=== PATIENT | female | born 1930 | race American Indian/Alaskan Native ===

== ENCOUNTER 2016-09-29 13:04 | Observation (INO) | payer MEDICARE, OTHER ==
--- NOTE | 2016-09-29 13:22 | EDM.PDOC ---
ED HPI SEIZURE COMPLAINT - General Chief Complaint: Syncope Stated Complaint: AMBULANCE Time Seen by Provider: 09/29/16 13:07 Source of Information: Reports: EMS, Family (son) History Limitations: Reports: No limitations - History of Present Illness INITIAL COMMENTS - FREE TEXT/NARRATIVE: She and her son were at home after having had lunch. She was sitting on a bench at the table and then became unresponsive to the point that her son had to hold her up and keep her from falling. 911 called and arrived. She was unresponsive, eyes were closed and she was breathing. Vital signs were BP 135/ 74 Resp were 1618. teletypesetter monitor showed NSR at 56 and room air sats were 96 percent. She became alert soon after the ambulance crew jostled her a little when transporting her. She has had not headache, chest pain, palpitations, weakness and had no prodrome. She feels fine now and back to normal. She is able to give a good history. Timing/Duration: Reports: minutes: Event Occurred (Where): home Event (Witnessed/Unwitnessed): witnessed (son) Location: Reports: other (generalized) Quality: Reports: unconscious Severity: severe Context: Denies: missed med dose(s), activity/exercise Pre Event Symptom(s): Reports: no other symptoms Event Symptoms: Reports: syncope. Denies: incontinence, tongue biting, confusion, headaches, nausea/vomiting Post Event Symptoms: Denies: confused, combative, headache, altered speech, postictal duration: Associated Injuries: Reports: other (No injury) Treatments SUPERVISOR RESIDENTIAL: Reports: Other (see below) (None) - Related Data Allergies/ADRs: Allergies Allergy/AdvReac Type Severity Reaction Status Date / Time No Known Allergies Allergy Verified 10/13/13 20:59 Home Meds: Home Meds Isosorbide Mononitrate [Isosorbide Mononitrate ER] 30 mg PO DAILY 10/13/13 [ History] Metoprolol Tartrate 50 mg PO BID 10/13/13 [History] Rosuvastatin Calcium [Crestor] 20 mg PO DAILY 10/13/13 [History] Social & Family History - Tobacco Use Smoking Status *Q: Never Smoker Second Hand Smoke Exposure: No - Alcohol Use Days Per Week of Alcohol Use: 7 Number of Drinks Per Day: 1 Total Drinks Per Week: 7 - Recreational Drug Use Recreational Drug Use: No ED ROS GENERAL - Review of Systems Review Of Systems: See Below Constitutional: Reports: no symptoms HEENT: Reports: No symptoms Respiratory: Reports: No Symptoms Cardiovascular: Reports: No symptoms GI/Abdominal: Reports: No symptoms : Reports: no symptoms Musculoskeletal: Reports: no symptoms Skin: Reports: no symptoms Neurological: Reports: No Symptoms Psychiatric: Reports: No symptoms Hematologic/Lymphatic: Reports: no symptoms - Physical Exam Exam: See Below Exam Limited By: No limitations General Appearance: alert, WD/WN, no apparent distress Eye Exam: bilateral eye: EOMI, normal inspection Ears: normal external exam, normal canal, hearing grossly normal, normal TMs Nose: normal inspection, normal mucosa, no blood Throat/Mouth: Normal inspection, Normal lips, Normal teeth, Normal gums, Normal oropharynx, Normal voice, No airway compromise Head Exam: atraumatic, normocephalic Neck: normal inspection, supple, non-tender, full range of motion Respiratory/Chest: no respiratory distress, lungs clear, normal breath sounds, no accessory muscle use, chest non-tender Cardiovascular: normal peripheral pulses, regular rate, rhythm, no edema, no gallop, no JVD, no murmur, no rub GI/Abdominal: normal bowel sounds, non tender Neuro Exam (Abbreviated): alert, oriented, CN II-XII intact, normal cognition, normal reflexes, no motor/sensory deficits DTR: 2+: bicep (R), bicep (L), tricep (R), tricep (L), patella (R), patella (L) , achilles (R), achilles (L) Back Exam: normal inspection Extremities: normal inspection, normal range of motion, non-tender, no pedal edema, normal capillary refill Skin Exam: Warm, Dry, Intact, Normal color, No rash Course - Vital Signs Last Recorded V/S: Last Vital Signs Temp 98.8 F 09/29/16 17:53 Pulse 64 09/29/16 17:53 Resp 16 09/29/16 17:53 BP 115/64 09/29/16 17:53 Pulse Ox 98 09/29/16 17:53 - Orders/Labs/Meds Orders: Medication Orders Acetaminophen (Tylenol) 650 mg PO Q4H PRN PRN Reason: Pain (mild 1-3 )/fever Aspirin (Aspirin) 81 mg PO BEDTIME [facility] Docusate Sodium (Colace) 100 mg PO DAILY PRN PRN Reason: Constipation Heparin Sodium (Porcine) (Heparin Sodium) 5,000 units SUBCUT Q8H [facility] Sodium Chloride (Normal Saline) 1,000 mls @ 50 mls/hr IV ASDIRECTED [facility] Last Admin: 09/29/16 18:32 Dose: 50 mls/hr Isosorbide Mononitrate (Imdur) 30 mg PO BID [facility] Metoprolol Tartrate (Lopressor) 25 mg PO BID [facility] Pantoprazole Sodium (Protonix) 40 mg PO ACBREAKFAST [facility] Rosuvastatin Calcium (Crestor) 20 mg PO DAILY [facility] Labs: Laboratory Tests 09/29/16 09/29/16 09/29/16 Range/Units 13:55 13:55 13:55 WBC 7.6 (5.0-10.0) 10^3/uL RBC 4.00 L (4.2-5.4) 10^6/uL Hgb 12.7 (12.0-16.0) g/dL Hct 37.4 (37.0-47.0) % MCV 93.5 (80-100) fL MCH 31.8 (27.0-34.0) pg MCHC 34.0 (33.0-35.0) g/dL Plt Count 238 (150-450) 10^3/uL Neut % (Auto) 66.7 (42.2-75.2) % Lymph % (Auto) 18.8 L (20.5-50.1) % Kane % (Auto) 11.5 H (2-8) % Eos % (Auto) 2.1 (1.0-3.0) % Baso % (Auto) 0.9 (0.0-1.0) % D-Dimer, Quantitative 663 H (0-400) ng/mL Sodium 135 (135-145) mmol/L Potassium 3.9 (3.6-5.0) mmol/L Chloride 103 (101-111) mmol/L Carbon Dioxide 25.0 (21.0-31.0) mmol/L Anion Gap 10.9 BUN 19 H (7-18) mg/dL Creatinine 0.8 (0.6-1.3) mg/dL Est Cr Clr Drug Dosing 45.42 mL/min Estimated GFR (MDRD) > 60 BUN/Creatinine Ratio 23.75 Glucose 138 H (74-105) mg/dL Calcium 8.6 (8.4-10.2) mg/dl Total Bilirubin 0.5 (0.2-1.0) mg/dL AST 17 (10-42) IU/L ALT 9 L (10-60) IU/L Alkaline Phosphatase 42 (42-121) IU/L Troponin I < 0.02 (0.00-0.02) ng/ml Total Protein 6.4 L (6.7-8.2) g/dl Albumin 3.3 (3.2-5.5) g/dl Globulin 3.1 Albumin/Globulin Ratio 1.06 Meds: Medications Generic Name Dose Route Start Last Admin Trade Name Freq PRN Reason Stop Dose Admin Acetaminophen 650 mg 09/29/16 18:12 Tylenol PO Q4H PRN Pain (mild 1-3 )/fever Aspirin 81 mg 09/29/16 21:00 Aspirin PO BEDTIME [facility] Docusate Sodium 100 mg 09/29/16 18:12 Colace PO DAILY PRN Constipation Heparin Sodium (Porcine) 5,000 units 09/29/16 22:00 Heparin Sodium SUBCUT Q8H [facility] Sodium Chloride 1,000 mls @ 50 mls/hr 09/29/16 18:30 09/29/16 18:32 Normal Saline IV 50 mls/hr ASDIRECTED [facility] Administration Isosorbide Mononitrate 30 mg 09/29/16 21:00 Imdur PO BID [facility] Metoprolol Tartrate 25 mg 09/29/16 21:00 Lopressor PO BID [facility] Pantoprazole Sodium 40 mg 09/30/16 06:00 Protonix PO ACBREAKFAST [facility] Rosuvastatin Calcium 20 mg 09/30/16 09:00 Crestor PO DAILY [facility] Discontinued Medications Generic Name Dose Route Start Last Admin Trade Name Freq PRN Reason Stop Dose Admin Iopamidol 100 ml 09/29/16 15:04 09/29/16 15:47 Isovue-370 (76%) IVPUSH 09/29/16 15:05 100 ml ONETIME ONE Administration - Re-Assessments/Exams Free Text/Narrative Re-Assessment/Exam: 09/29/16 17:02 Cheli has remained alert and has had normal mentation and able to carry on a normal conversation with her son. Departure - Departure Time of Disposition: 13:12 Disposition: Admitted As Inpatient 66 Condition: good Clinical Impression: Syncope and collapse
[2016-09-29 14:23] LABS: CHLORIDE,CL 103 mmol/L (101-111); SODIUM,NA 135 mmol/L (135-145)
[2016-09-29] MEDS ORDERED: Iopamidol 755 Mg/ML 100 ML Bottle IVPUSH ONE (15:04)
--- NOTE | 2016-09-29 17:29 | PCM.HP ---
H&P History of Present Illness - General Date of Service: 09/29/16 Admit Problem/Dx: pt was brought with "passing out" Syncopal Episode. She and her son were at home after having lunch,was sitting on a bench at the table and then became unresponsive to the point that her son had to hold her up and keep her from falling. 911 was called and was unresponsive, eyes were closed and she was breathing. Vital signs were BP 135/74 Resp were 16/18. molding line operator showed NSR at 56 and room air sats were 96 percent. She became alert soon after the ambulance crew jostled her a little when transporting her. She has had not headache, chest pain, palpitations, weakness and had no prodrome. She feels fine now and back to normal. She is able to give a good history. Source of Information: Patient, Old records History Limitations: Reports: No limitations - History of Present Illness Initial Comments - Free Text/Narative: The patient is an 86-year-old female with past medical history of coronary artery disease, hypertension, hyperlipidemia who was broght to ED by Ambulace after she was found to be unresponsive ( acute syncopal episode) after the meal . The last admitted to [facility] with chest pain in september 2013 and at that time she was seen by Cardiology and had Angiorram from [facility] and had no significant coronary artery disease and the lesion in the posterolateral branch is the only one which might be theculprit, but given the fact that the artery is relatively small in size, Dr. Norton recommended medical management and no significant stenosis in LAD. The pt gets folloowed by Dr. Brown at [facility]. Pt had elevated D-Dimer ( 663 ) and CT chest with contrst for PE and it was Negative for PE. She also had Head CT - and the Impression was: Age-related Atrophy and chronic white matter changes. Troponin was <0.02. She is now admitted for observation to rule out ACS. Onset of Symptoms: Reports: today, sudden Duration of Symptoms: Reports: Resolved prior to arrival Associated Symptoms: Reports: syncope - Related Data Allergies/Adverse Reactions: Allergies Allergy/AdvReac Type Severity Reaction Status Date / Time No Known Allergies Allergy Verified 10/13/13 20:59 Home Medications: Home Meds Isosorbide Mononitrate [Isosorbide Mononitrate ER] 30 mg PO DAILY 10/13/13 [ History] Metoprolol Tartrate 50 mg PO BID 10/13/13 [History] Rosuvastatin Calcium [Crestor] 20 mg PO DAILY 10/13/13 [History] Past Medical History HEENT History: Reports: Impaired vision Cardiovascular History: Reports: High cholesterol, Hypertension Social & Family History - Tobacco Use Smoking Status *Q: Never Smoker Second Hand Smoke Exposure: No - Caffeine Use Caffeine Use: Reports: Coffee, Soda - Alcohol Use Days Per Week of Alcohol Use: 7 Number of Drinks Per Day: 1 Total Drinks Per Week: 7 - Recreational Drug Use Recreational Drug Use: No H&P Review of Systems - Review of Systems: Review Of Systems: See Below General: Denies: fever, chills, weakness, fatigue, diaphoresis HEENT: Denies: hearing changes, sinus congestion, sore throat, vertigo, visual changes Pulmonary: Denies: Shortness of Breath, Wheezing, Cough, Sputum Cardiovascular: Reports: syncope. Denies: chest pain, palpitations, dyspnea on exertion, lightheadedness Gastrointestinal: Denies: Abdominal pain, Diarrhea, Nausea, Vomiting Genitourinary: Denies: dysuria, frequency, burning, urgency Musculoskeletal: Denies: neck pain, shoulder pain, foot pain Skin: Denies: bruising, pruritis, rash, erythema Psychiatric: Denies: confusion, anxiety Neurological: Denies: Confusion, Tingling, Tremors Hematologic/Lymphatic: Reports: no symptoms Immunologic: Reports: no symptoms Exam - Exam Exam: See Below - Vital Signs Vital Signs: Last Vital Signs Temp 36.1 C 09/29/16 17:15 Pulse 59 L 09/29/16 17:15 Resp 16 09/29/16 17:15 BP 106/60 09/29/16 17:15 Pulse Ox 98 09/29/16 17:15 Weight: 73.573 kg - Exam Quality Assessment: DVT prophylaxis. No: supplemental oxygen, urinary catheter General: alert, oriented, cooperative HEENT: Hearing intact, Mucosa moist & pink, Pupils equal Neck: supple. No: lymphadenopathy, thyromegaly Lungs: Clear to auscultation, Normal respiratory effort. No: Rhonchi, Wheezing Cardiovascular: regular rate, regular rhythm, systolic murmur Abdomen: normal bowel sounds, soft. No: organomegaly, guarding, rigidity, rebound (Female) Exam: Deferred Rectal (Female) Exam: Deferred Back Exam: normal inspection Extremities: normal inspection. No: cyanosis, calf tenderness, edema Skin: warm, dry, intact Neurological: cranial nerves intact Neuro Extensive - Mental Status: alert, oriented x3, normal mood/affect, normal cognition Neuro Extensive - Motor, Sensory, Reflexes: CN II-XII intact, normal gait, normal reflexes Psychiatric: alert, normal affect, normal mood Physical Exam Comments:: I reviewed the EKG: Normal sinus rhythm with Ventricular rate of 60 Bpm and old Anteriseptal infract, No significant ST-T changes - Patient Data Result Diagrams: 09/29/16 13:55 09/29/16 13:55 *Q Meaningful Use (ADM) - VTE *Q VTE Criteria *Q: - Stroke *Q Stroke Criteria *Q: - AMI *Q AMI Criteria *Q: - Problem List (1) Syncope and collapse SNOMED Code(s): 001265199 ICD Code: R55 - SYNCOPE AND COLLAPSE Status: Acute Current Visit: Yes (2) Acute coronary syndrome SNOMED Code(s): 127816240 ICD Code: I24.9 - ACUTE ISCHEMIC HEART DISEASE, UNSPECIFIED Status: Acute Current Visit: No (3) HTN (hypertension) SNOMED Code(s): 38947513 ICD Code: I10 - ESSENTIAL (PRIMARY) HYPERTENSION Status: Acute Current Visit: Yes (4) Dyslipidemia SNOMED Code(s): 955741581 ICD Code: E78.5 - HYPERLIPIDEMIA, UNSPECIFIED Status: Acute Current Visit : Yes Problem List Initiated/Reviewed/Updated: Yes Assessment/Plan Comment:: 86 y/O pleasant Female came to ED by ambulance with acute loss of Consciousness ( acute Syncopal Episode) 1. Acute Syncopal Episode: Pt had this episode at home and witnessed by Son -Will admit her with Telemetry -Will check Serial Cardiac markers ( Troponin X 3 sets) -She is bradycardic and that may have trggered the episode -Will continue Aspirin 81 mg daily -Will Hold Metoprolol 2. Hypertension: BP is acceptable and she was on Metoprolol at 50 mg BID and Imdur 30 mg daily -Will Increase Imdur to 30 mg bID and Decrease Metoprolol to 25 mg BID -Check BP along with HR q2 hrs 3. Dyslipidemia: Will continue creastor at 20 mg daily 4. DVT prophylaxis: Heparin 5000 units sq TID 5. GI prophylaxis: Protonix 40 mg daily 6. Code Status: DNR/DNI
[2016-09-29] MEDS ORDERED: Acetaminophen 325 MG Tab PO PRN (18:12)
[2016-09-29] MEDS ORDERED: Docusate Sodium 100 MG Cap PO PRN (18:12)
[2016-09-29] MEDS ORDERED: Sodium Chloride 0.9% 1,000 ML IV SCH (18:30)
[2016-09-29] MEDS ORDERED: diphenhydrAMINE 25 MG Tab PO ONE (20:30)
[2016-09-29] MEDS: Isosorbide Mononitrate 30 MG Tab.ER PO SCH (20:49)
[2016-09-29] MEDS: Metoprolol Tartrate 25 MG Tab PO SCH (20:49)
[2016-09-29] MEDS ORDERED: Aspirin 81 MG Tab.Chew PO SCH (21:00)
[2016-09-29] MEDS: Heparin Sodium 5,000 Units/ML Vial SUBCUT SCH (21:44)
[2016-09-30 04:47] LABS: CHLORIDE,CL 109 mmol/L (101-111); SODIUM,NA 139 mmol/L (135-145)
[2016-09-30] MEDS: Heparin Sodium 5,000 Units/ML Vial SUBCUT SCH ×2 (05:52→14:18)
[2016-09-30] MEDS ORDERED: Pantoprazole 40 MG Tab.CR PO SCH (06:00)
[2016-09-30] MEDS: Isosorbide Mononitrate 30 MG Tab.ER PO SCH (08:55)
[2016-09-30] MEDS: Metoprolol Tartrate 25 MG Tab PO SCH (08:56)
[2016-09-30] MEDS ORDERED: Rosuvastatin 10 MG Tab PO SCH (09:00)
[2016-09-30 11:20] VITALS: BP 121/59
--- NOTE | 2016-12-02 09:19 | EKG ---
09/29/2016- GUSTAVO MÉNDEZ - This is a standard 12-lead EKG showing normal sinus ventricular rhythm with a rate of 60 beats per minute. Probable old intraseptal infract nonspecific. No significant ST-T changes. Normal IL interval. Normal QRS duration. Normal axis. [facility] /[id number]
--- NOTE | 2016-12-26 14:38 | DISCH ---
FINAL DIAGNOSES: 1. Acute syncopal episode. 2. Hypertension. 3. Dyslipidemia. BRIEF HISTORY AND PHYSICAL EXAMINATION: The patient is an 86-year-old female with a history of coronary artery disease, hypertension, and dyslipidemia, was brought to the ER because of unresponsiveness. Upon arrival of the ambulance, telephone order clerk room service showed just normal sinus rhythm and heart rate of 56 with a saturation of 96%. No other associated symptoms. On admission to the ER, vital signs showed blood pressure of 106/60, heart rate of 59 beats per minute, respirations of 16 breaths per minute, oxygen saturation of 98%, and temperature of 36.1 degree Celsius. There were no significant physical findings on admission. BRIEF HOSPITAL COURSE: The patient was admitted to Medical-Surgical bed, hooked to telemetry. Her metoprolol were on hold because of bradycardia. Troponin checked, 3 sets came back normal. She was started on DVT prophylaxis with heparin. Latest BMP showed normal values. Discharge vital signs showed a blood pressure of 121/59, heart rate of 66 beats per minute, temperature of 36.6, oxygen saturation 99%, and respirations of 18 breaths per minute. The patient was discharged the next day. DISCHARGE INSTRUCTIONS: She is to follow up with primary care provider within 1 week from discharge. Medication changes were made on her blood pressure meds. Advised to check blood pressures at home and to come back to the emergency room if with emergent health concerns. [facility] /[id number]
== END 2016-09-30 14:03 | disposition home or self-care (01) ==
LOC: DL.ED 13:04 → DL.MS 17:03 → UNDOADMOB 17:03 → DL.MS 18:12
PROVIDERS: ADMIT Internal Medicine Nephrology; ATTEND Internal Medicine Nephrology
DX: R55 Syncope and collapse (principal); E78.5 Hyperlipidemia, unspecified; I25.10 Atherosclerotic heart disease of native coronary artery without angina pectoris; I10 Essential (primary) hypertension; I24.9 Acute ischemic heart disease, unspecified; I45.89 Other specified conduction disorders; R94.31 Abnormal electrocardiogram [ECG] [EKG]; Z79.899 Other long term (current) drug therapy
CPT/HCPCS: 36415; 70450; 71260; 80048; 80053; 84484; 85025; 85379; 93005; 93010; 96360; 96361; 96372; 99285; A9270; G0378; J1644; J7030; Q9967

== ENCOUNTER 2017-08-02 07:20 | Emergency (ER) | payer MEDICARE, OTHER ==
[2017-08-02 07:24] VITALS: BP 130/55
--- NOTE | 2017-08-02 07:49 | EDM.PDOC ---
ED HPI GENERAL MEDICAL PROBLEM - General Chief Complaint: ENT Problem Stated Complaint: [id number] SOMETHING STUCK IN EAR Time Seen by Provider: 08/02/17 07:35 Source of Information: Reports: Patient, RN, RN Notes Reviewed History Limitations: Reports: No Limitations - History of Present Illness INITIAL COMMENTS - FREE TEXT/NARRATIVE: C/O rubber tip of hearing aid is stuck in left ear since last night. No other complaints. Denies pain, just irritation. Onset: Today Duration: Constant Location: Reports: Other (left ear canal) Severity: Mild Improves with: Reports: None Worsens with: Reports: None - Related Data Allergies Allergy/AdvReac Type Severity Reaction Status Date / Time No Known Allergies Allergy Verified 08/02/17 07:24 Home Meds: Home Meds Rosuvastatin Calcium [Crestor] 20 mg PO DAILY 10/13/13 [History] Isosorbide Mononitrate [Imdur] 30 mg PO BID #30 tab.er 09/30/16 [Rx] Metoprolol Tartrate [Lopressor] 25 mg PO BID #30 tablet 09/30/16 [Rx] Past Medical History HEENT History: Reports: Impaired Vision Other HEENT History: wears glasses, slightly [place] Cardiovascular History: Reports: High Cholesterol, Hypertension [employer] History: Reports: Musculoskeletal History: Reports: Fracture Other Musculoskeletal History: ankle fracture 16 years ago. - Past Surgical History Musculoskeletal Surgical History: Reports: None Social & Family History - Tobacco Use Smoking Status *Q: Never Smoker Second Hand Smoke Exposure: No - Caffeine Use Caffeine Use: Reports: Coffee, Soda - Alcohol Use Days Per Week of Alcohol Use: 7 Number of Drinks Per Day: 1 Total Drinks Per Week: 7 - Recreational Drug Use Recreational Drug Use: No - Living Situation & Occupation Living situation: Reports: Alone ED ROS ENT - Review of Systems Review Of Systems: ROS reveals no pertinent complaints other than HPI. ED EXAM, ENT - Physical Exam Exam: See Below Exam Limited By: No Limitations General Appearance: Alert, WD/WN, No Apparent Distress Ears: Normal TMs, Canal Foreign Body (black/salgado soft rubber object). No: Auricular Erythema, Auricular Tenderness, Canal Blood, Canal Discharge, Canal Swelling, Cerumen Impaction Head: Atraumatic, Normocephalic Respiratory/Chest: No Respiratory Distress Neurological: Alert, Normal Cognition, Normal Gait, No Motor/Sensory Deficits Psychiatric: Normal Mood Skin: Warm, Dry, Normal Color Course - Vital Signs Last Recorded V/S: Last Vital Signs Temp 35.9 C 08/02/17 07:22 Pulse 92 08/02/17 07:22 Resp 18 08/02/17 07:22 BP 130/55 L 08/02/17 07:22 Pulse Ox 97 08/02/17 07:22 - Re-Assessments/Exams Free Text/Narrative Re-Assessment/Exam: 08/02/17 07:40 Alligator hemostat used to removed rubber FB from left ear canal. FB completely removed on first attempt with no complications. Departure - Departure Time of Disposition: 07:48 Disposition: Home, Self-Care 01 Condition: Good Clinical Impression: Foreign body in ear Qualifiers: Encounter type: initial encounter Laterality: left Qualified Code(s): T16.2XXA - Foreign body in left ear, initial encounter - Discharge Information Instructions: Ear Foreign Body, [id number] Forms: ED Department Discharge Additional Instructions: Follow up with your italian tutor or doctor as needed.
== END 2017-08-02 07:53 | disposition home or self-care (01) ==
LOC: DL.ED 07:20
DX: T16.2XXA Foreign body in left ear, initial encounter (principal); E78.00 Pure hypercholesterolemia, unspecified; I10 Essential (primary) hypertension; Z79.899 Other long term (current) drug therapy
CPT/HCPCS: 69200; 99282